=== PATIENT | female | born 1975 | race Caucasian/White ===

== ENCOUNTER 2016-06-19 13:00 | Outpatient (RCR) | payer BC ==
--- NOTE | 2016-06-13 13:35 | PT/OT/ST INITIAL EVALUATION ---
[facility], [facility]. PHYSICAL/OCCUPATIONAL THERAPY [address] [place] [id number] PLAN OF CARE/ASSESSMENT FOR OUTPATIENT REHABILITATION (Complete for Initial Claims Only) 1. PATIENT'S NAME Suze Serrano 2. ACC. No [id number] 3. PRIMARY DX Sacroiliitis with 4. SECONDARY DX Low back pain 5. ONSET DATE Worsening in the last 2 months. 6. REFERRAL DATE 7. SOC. DATE/TIME 06/08/2016 13:04 8. PRIOR LEVEL OF FUNCTION; PERTINENT HISTORY (Prior therapy results, reason for referral.) S: Prior to therapy, the patient did consent to today's evaluation and treatment. The patient is a 40-year-old female referred to physical therapy by Dr. Cochran to address sacroiliitis with . The patient does rate her overall and general health as good. The patient states that this will be her 4th child and she is 36 weeks at this time. The patient states the symptoms have been gradually increasing over the , but has worsened in the last 1 to 2 months. The patient states her back is now very aggravated secondary to lying flat significantly increases her pain and she has to have an ultrasound performed one time per week. The patient does state she occasionally has symptoms down her left lower extremity going into her buttocks area. The patient does state additionally that her left leg feels weak at times, especially upon first rising. The patient does state she does occasionally have back pain when she is not , but not to this extent. Prior function: Includes the patient being able to perform all activities. Current function: Currently the patient is having difficulty caring for her other children as this significantly increases her pain and is having difficulty sleeping secondary to this pain as well. Therapy History: The patient has had no previous physical therapy for this condition. No obstacles to delivery of care are observed. Maximal pain level is 6 to 7/10 with a 4/10 being a constant pain level. The patient describes the pain as an achy sensation in her low back and left buttocks and sharp at times when she lays flat on her back. Aggravating factors, once again, include lying flat on her back. Relieving factors include avoiding that position. Diagnostic tests: No diagnostic tests have been performed at this time. Past medical history: Does include gestational diabetes. None other significant is reported. Medication list: Include metformin, which she started in the last week. The patient is taking no meds for her back pain. The patient's goal for physical therapy is to decrease her back pain. 9. INITIAL ASSESSMENT/SAFETY PRECAUTIONS/MEDICAL COMPLICATIONS (Level of function at start of care. Be specific, use objective measures, list problems.) O: APPEARANCE AND OBSERVATION: The patient presents as a middle aged female in apparently healthy condition. She does ambulate with decreased left stance time on the left lower extremity. The patient additionally has a slightly forward flexed posture. PALPATION: With palpation the patient does have increased tone palpated throughout the lumbar spine paraspinals, as well as at the sacroiliac joints, left more involved than the right. SPECIAL TESTS: Include deep tendon reflexes, which are 2+/4 for patellar and Achilles or within normal limits. 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 RANGE OF MOTION/FLEXIBILITY: Throughout the lumbar spine is within functional limits and grossly equal bilaterally. The patient did report a stiffness sensation at end range. Hamstring flexibility on the right as measured at the popliteal angle is 142 degrees on the right and 123 degrees on the left. Piriformis flexibility is approximately 25% limited bilaterally. STRENGTH: Throughout bilateral lower extremities is grossly 4+/5 throughout. TODAY'S TREATMENT: Following the initial evaluation manual therapy techniques were performed throughout the lumbar spine and piriformis. Therapeutic exercise was then performed and issued as a home exercise program. 10. INITIAL POC: (Specify procedures, modalities, short and intermediate school teacher goals) A: The patient presents at physical therapy with diagnosis of sacroiliitis with with resultant increased low back pain, increased muscle tone in the lumbar spine paraspinals and piriformis muscles and decreased tolerance to being on her back. PROGNOSIS: This patient has a prognosis with regular therapy attendance and compliance with home exercise program. This patient is expected to benefit from physical therapy services in order to have OUTCOME ASSESSMENT: Modified Oswestry low back pain disability questionnaire which scored 12% disability. GOALS: 1. The patient to be independent and compliant with home exercise program in 1 week. 2. The patient with a 50% decrease in maximum pain level in her low back to allow caring for her other children without restrictions. 3. The patient with a Modified Oswestry low back pain disability questionnaire no more than 5% disability in 4 weeks to allow sitting and standing without restrictions. The diagnosis, prognosis, treatment plan, risks and expected outcome were discussed with the patient and the patient did agree to today's established plan of care. P: Plan to treat the patient 2 times per week for 4 weeks in order to address sacroiliitis with . Therapeutic treatments to include possible heat and/or ice. Manual therapy techniques as indicated. Therapeutic exercise targeting active range of motion, flexibility and postural stabilization activities, and patient education and home exercise program to be advanced as warranted. 11. PHYSICIAN SIGNATURE ? ON FILE OR ENTER HERE: 12. DATE: I certify the need for these services furnished under this plan of care and if for partial hospitalization. 13. CERTIFICATION FROM THROUGH
[2016-06-27] MEDS ORDERED: PREN1TAB79 PO (06:24)
[2016-06-27] MEDS ORDERED: FERR325C PO (06:26)
[2016-06-27] MEDS ORDERED: METF850T2 PO (06:27)
[2016-06-28] MEDS ORDERED: NAPR250T34 PO (17:04)
== END 2016-08-15 09:56 | disposition home or self-care (01) ==
LOC: PT 13:00
PROVIDERS: ATTEND Family Medicine
DX: O26.893 Other specified pregnancy related conditions, third trimester (principal); Z3A.36 36 weeks gestation of pregnancy; M46.1 Sacroiliitis, not elsewhere classified; M54.5 Low back pain